=== PATIENT | female | born 1980 | race Caucasian/White ===

== ENCOUNTER 2019-06-10 14:52 | Emergency (ER) | payer OTHER ==
[~2019-06-10] VITALS: Ht 157.5 cm; Wt 120.7 kg
[~2019-06-10 14:52] MED LIST: FLAGYL500 MG PO; IBUPROFEN 800800 M1 PO; IBUPROFEN 800800 MG PO; NORCO 5-325 TA1 EAC1 PO; NORCO 5-325 TA1 EACH PO; ULTRAM 50MG TAB50 MG PO
[2019-06-10 15:11] VITALS: BP 138/87
== END 2019-06-10 15:12 | disposition home or self-care (01) ==
LOC: M.ERS 14:52
DX: R10.32 Left lower quadrant pain (principal); G89.29 Other chronic pain; I48.91 Unspecified atrial fibrillation; E28.2 Polycystic ovarian syndrome; F32.9 Major depressive disorder, single episode, unspecified; F41.9 Anxiety disorder, unspecified; F17.210 Nicotine dependence, cigarettes, uncomplicated; Z90.710 Acquired absence of both cervix and uterus; Z91.040 Latex allergy status; Z91.048 Other nonmedicinal substance allergy status; Z88.8 Allergy status to other drugs, medicaments and biological substances

== ENCOUNTER 2019-06-13 20:48 | Emergency (ER) | payer OTHER ==
[~2019-06-13] VITALS: Ht 180.3 cm; Wt 74.8 kg
[2019-06-13] MEDS ORDERED: REMERON15 M2 PO (20:54)
[2019-06-13] MEDS ORDERED: HYDRALAZINE 2525 M1 PO (20:54)
[2019-06-13 21:09] LABS: URINE BILIRUBIN NEGATIVE (Negative); URINE BLOOD NEGATIVE (Negative); URINE CLARITY CLEAR; URINE COLOR YELLOW; URINE GLUCOSE-RANDOM NEGATIVE (Negative); URINE KETONES NEGATIVE (Negative); URINE LEUKOCYTES-REFLEX NEGATIVE (Negative); URINE NITRITE-REFLEX NEGATIVE (Negative); URINE PROTEIN NEGATIVE (Negative); URINE SPECIFIC GRAVITY 1.025 (1.005-1.030); URINE UROBILINOGEN 0.2 E.U./dl (0.2-1.0)
[2019-06-13 21:18] LABS: AMP/METHAMP Negative (Negative); BARBITURATES Negative (Negative); BENZODIAZEPINES Negative (Negative); COCAINE Negative (Negative); METHADONE Negative (Negative); OPIATES Negative (Negative); PCP Negative (Negative); THC Negative (Negative)
[2019-06-13] MEDS ORDERED: FLEXERIL PO (22:33)
[2019-06-13] MEDS ORDERED: HYDROCODON-ACE1 EAC8 PO (22:33)
[2019-06-13 22:53] VITALS: BP 132/78
== END 2019-06-13 22:54 | disposition home or self-care (01) ==
LOC: M.ERS 20:48
PROVIDERS: Emergency Medicine
DX: S29.9XXA Unspecified injury of thorax, initial encounter (principal); S39.92XA Unspecified injury of lower back, initial encounter; I48.91 Unspecified atrial fibrillation; E28.2 Polycystic ovarian syndrome; F32.9 Major depressive disorder, single episode, unspecified; F41.9 Anxiety disorder, unspecified; F17.210 Nicotine dependence, cigarettes, uncomplicated; Z90.710 Acquired absence of both cervix and uterus; Z91.040 Latex allergy status; Z91.048 Other nonmedicinal substance allergy status; Z88.8 Allergy status to other drugs, medicaments and biological substances; W22.8XXA Striking against or struck by other objects, initial encounter; Y93.89 Activity, other specified; Y92.89 Other specified places as the place of occurrence of the external cause; Y99.0 Civilian activity done for income or pay

== ENCOUNTER 2019-09-18 13:02 | Emergency (ER) | payer OTHER ==
[~2019-09-18] VITALS: Ht 167.6 cm; Wt 69.4 kg
[~2019-09-18 13:02] MED LIST changes: +FLEXERIL PO; +HYDRALAZINE 2525 M1 PO; +HYDROCODON-ACE1 EAC8 PO; +REMERON15 M2 PO
[2019-09-18 14:16] LABS: URINE BILIRUBIN NEGATIVE (Negative); URINE BLOOD NEGATIVE (Negative); URINE CLARITY CLEAR; URINE COLOR YELLOW; URINE GLUCOSE-RANDOM NEGATIVE (Negative); URINE KETONES NEGATIVE (Negative); URINE LEUKOCYTES-REFLEX NEGATIVE (Negative); URINE NITRITE-REFLEX NEGATIVE (Negative); URINE PROTEIN NEGATIVE (Negative); URINE UROBILINOGEN 0.2 E.U./dl (0.2-1.0)
[2019-09-18 14:21] LABS: ABSOLUTE BASOPHILS 0.1 thou/uL (0.0-0.2); ABSOLUTE EOSINOPHILS 0.2 thou/uL (0.0-0.7); ABSOLUTE LYMPHOCYTES 2.4 thou/uL (0.8-5.3); ABSOLUTE MONOCYTES 0.6 thou/uL (0.0-1.2); ABSOLUTE NEUTROPHILS 6.2 thou/uL (1.6-8.1); BASOPHILS 0.6 %; EOSINOPHILS 1.8 %; HEMATOCRIT 40.9 % (37.0-47.0); LYMPHOCYTES 25.8 %; MCH 31.3 pg (26.0-34.0); MCHC 34.2 g/dL (28.0-37.0); MCV 91.4 fL (80.0-100.0); MONOCYTES 5.9 %; MPV 6.3 fl. (7.2-11.1); NUCLEATED RBCS 0 /100WBC; PLATELET COUNT* 342 thou/uL (150-400); POLYS 65.9 %; RBC 4.47 mil/uL (4.20-5.00); RDW-CV 13.2 % (10.5-14.5); WBC 9.3 thou/uL (4.0-11.0)
[2019-09-18 14:25] LABS: AMP/METHAMP Negative (Negative); BARBITURATES Negative (Negative); BENZODIAZEPINES Negative (Negative); COCAINE Negative (Negative); METHADONE Negative (Negative); OPIATES Negative (Negative); PCP Negative (Negative); THC Negative (Negative)
[2019-09-18 14:29] LABS: CALCIUM 8.7 mg/dL (8.5-10.1); CREATININE 0.8 mg/dL (0.6-1.3); POTASSIUM 3.3 mmol/L (3.5-5.1)
[2019-09-18 14:33] LABS: APTT 27.9 Seconds (25.0-31.3); PROTIME 10.6 Seconds (9.20-11.50)
[2019-09-18 14:40] LABS: ALBUMIN 3.7 g/dL (3.4-5.0); TOTAL BILIRUBIN 0.3 mg/dL (<0.1-1.0); TOTAL PROTEIN 6.9 g/dL (6.4-8.2)
--- NOTE | 2019-09-18 16:46 | EKG ---
[place] [address] ELECTROCARDIOGRAM REPORT Name: DIANNSHANON Ramos Room: [facility]#: [id number] Admission: 09/18/19 Attend Phys: Discharge: Date of : 82 Date of Service: 09/18/19 1309 Report #: [id number] THIS REPORT FOR: //name// [facility] ED Test Date: 2019-09-18 Test Time: 13:09:07 Pat Name: SHANON TIDWELL Department: Room: Gender: Audio Technician: : 1980 Requested By: Muna Ndiaye Order Number: [id number] MD: Dennis Hilario Measurements Intervals [place] Rate: 79 P: 36 CO: 156 QRS: 33 QRSD: 87 T: 26 QT: 360 QTc: 413 Interpretive Statements Sinus rhythm Minimal ST elevation, anterior leads eary repolarization Compared to ECG 07/11/2016 17:24:12 no change Electronically Signed On 09-18-2019 16:46:05 CDT by Dennis Hilario [email or web address] <ELECTRONICALLY SIGNED> By: Dennis Hilario MD, [facility] 09/18/19 1646 1309 1309 Dennis Hilario MD, [facility] /EPI
[2019-09-18 17:06] VITALS: BP 120/45
== END 2019-09-18 17:07 | disposition home or self-care (01) ==
LOC: M.ERS 13:02
PROVIDERS: Personal Emergency Response Attendant
DX: R07.89 Other chest pain (principal); R51 Headache; I48.91 Unspecified atrial fibrillation; E28.2 Polycystic ovarian syndrome; F32.9 Major depressive disorder, single episode, unspecified; F41.9 Anxiety disorder, unspecified; F17.210 Nicotine dependence, cigarettes, uncomplicated; Z90.710 Acquired absence of both cervix and uterus; Z91.040 Latex allergy status; Z91.048 Other nonmedicinal substance allergy status; Z88.8 Allergy status to other drugs, medicaments and biological substances

== ENCOUNTER 2019-10-08 12:07 | Emergency (ER) | payer OTHER ==
[~2019-10-08] VITALS: Ht 177.8 cm; Wt 74.8 kg
[2019-10-08 12:42] LABS: ABSOLUTE BASOPHILS 0.1 thou/uL (0.0-0.2); ABSOLUTE EOSINOPHILS 0.1 thou/uL (0.0-0.7); ABSOLUTE LYMPHOCYTES 2.1 thou/uL (0.8-5.3); ABSOLUTE MONOCYTES 0.6 thou/uL (0.0-1.2); ABSOLUTE NEUTROPHILS 5.4 thou/uL (1.6-8.1); BASOPHILS 1.1 %; EOSINOPHILS 1.8 %; HEMATOCRIT 41.6 % (37.0-47.0); HEMOGLOBIN 14.6 gm/dL (12.0-15.0); LYMPHOCYTES 25.8 %; MCH 31.9 pg (26.0-34.0); MCV 91.3 fL (80.0-100.0); MONOCYTES 6.8 %; MPV 6.5 fl. (7.2-11.1); NUCLEATED RBCS 0 /100WBC; PLATELET COUNT* 364 thou/uL (150-400); POLYS 64.5 %; RBC 4.56 mil/uL (4.20-5.00); WBC 8.3 thou/uL (4.0-11.0)
[2019-10-08 12:51] LABS: CREATININE 0.7 mg/dL (0.6-1.3); POTASSIUM 3.5 mmol/L (3.5-5.1)
[2019-10-08 12:56] LABS: ALBUMIN 3.8 g/dL (3.4-5.0); TOTAL BILIRUBIN 0.3 mg/dL (<0.1-1.0); TOTAL PROTEIN 7.4 g/dL (6.4-8.2)
[2019-10-08 12:58] LABS: URINE BILIRUBIN NEGATIVE (Negative); URINE BLOOD NEGATIVE (Negative); URINE CLARITY CLEAR; URINE COLOR YELLOW; URINE GLUCOSE-RANDOM NEGATIVE (Negative); URINE KETONES NEGATIVE (Negative); URINE LEUKOCYTES-REFLEX NEGATIVE (Negative); URINE NITRITE-REFLEX NEGATIVE (Negative); URINE PROTEIN NEGATIVE (Negative); URINE SPECIFIC GRAVITY <= 1.005 (1.005-1.030); URINE UROBILINOGEN 0.2 E.U./dl (0.2-1.0)
[2019-10-08] MEDS ORDERED: IBUPROFEN 800800 M1 PO (13:40)
[2019-10-08] MEDS ORDERED: NORCO 5-325 TA1 EAC2 PO (13:40)
[2019-10-08 14:21] VITALS: BP 108/71
== END 2019-10-08 14:23 | disposition home or self-care (01) ==
LOC: M.ERS 12:07
PROVIDERS: Nurse Practitioner Family
DX: R10.32 Left lower quadrant pain (principal); I48.91 Unspecified atrial fibrillation; E28.2 Polycystic ovarian syndrome; F32.9 Major depressive disorder, single episode, unspecified; F41.9 Anxiety disorder, unspecified; F17.210 Nicotine dependence, cigarettes, uncomplicated; Z90.710 Acquired absence of both cervix and uterus; Z91.048 Other nonmedicinal substance allergy status; Z91.040 Latex allergy status; Z88.8 Allergy status to other drugs, medicaments and biological substances

== ENCOUNTER 2020-04-27 19:00 | Emergency (ER) | payer OTHER ==
[~2020-04-27] VITALS: Ht 175.3 cm; Wt 65.3 kg
[~2020-04-27 19:00] MED LIST changes: +NORCO 5-325 TA1 EAC2 PO
[2020-04-27 19:40] LABS: ABSOLUTE BASOPHILS 0.1 thou/uL (0.0-0.2); ABSOLUTE EOSINOPHILS 0.1 thou/uL (0.0-0.7); ABSOLUTE LYMPHOCYTES 2.2 thou/uL (0.8-5.3); ABSOLUTE MONOCYTES 0.9 thou/uL (0.0-1.2); ABSOLUTE NEUTROPHILS 9.7 thou/uL (1.6-8.1); BASOPHILS 0.8 %; HEMATOCRIT 41.6 % (37.0-47.0); HEMOGLOBIN 13.8 gm/dL (12.0-15.0); LYMPHOCYTES 16.7 %; MCH 30.6 pg (26.0-34.0); MCHC 33.1 g/dL (28.0-37.0); MCV 92.4 fL (80.0-100.0); MONOCYTES 6.8 %; NUCLEATED RBCS 0 /100WBC; PLATELET COUNT* 324 thou/uL (150-400); POLYS 74.7 %; WBC 12.9 thou/uL (4.0-11.0)
[2020-04-27 19:51] LABS: PROTIME 10.2 Seconds (9.20-11.50)
[2020-04-27 19:52] LABS: CALCIUM 9.9 mg/dL (8.5-10.1); CREATININE 0.7 mg/dL (0.6-1.3); POTASSIUM 4.1 mmol/L (3.5-5.1)
[2020-04-27 20:07] LABS: ALBUMIN 3.9 g/dL (3.4-5.0); MAGNESIUM 2.1 mg/dL (1.8-2.4); TOTAL BILIRUBIN 0.3 mg/dL (<0.1-1.0); TOTAL PROTEIN 7.2 g/dL (6.4-8.2)
[2020-04-27 20:20] VITALS: BP 116/69
--- NOTE | 2020-04-28 13:00 | EKG ---
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 : 1980 Requested By: Beverly Horton Order Number: [id number] MD: Pedro Cabezas Measurements Intervals [place] Rate: 97 P: 66 [place]: 138 QRS: 47 QRSD: 83 T: 40 QT: 337 QTc: 428 Interpretive Statements Sinus rhythm Probable left atrial enlargement Left ventricular hypertrophy Baseline wander in lead(s) I Compared to ECG 09/18/2019 13:09:07 Left ventricular hypertrophy now present ST (T wave) deviation no longer present Electronically Signed On 04-28-2020 13:00:17 CDT by Pedro Cabezas [email or web address] <ELECTRONICALLY SIGNED> By: Pedro Cabezas MD, FACC 04/28/20 1300 02 02 Pedro Cabezas MD, FAC /EPI
== END 2020-04-27 20:21 ==
LOC: M.ERS 19:00
PROVIDERS: Emergency Medicine
DX: F41.9 Anxiety disorder, unspecified (principal); I48.91 Unspecified atrial fibrillation; F17.210 Nicotine dependence, cigarettes, uncomplicated; Z90.710 Acquired absence of both cervix and uterus; Z91.040 Latex allergy status; Z88.8 Allergy status to other drugs, medicaments and biological substances